=== PATIENT | female | born 1995 ===

== ENCOUNTER 2021-11-01 09:57 | Outpatient (CLI) | payer OTHER | END 2021-11-01 11:25 | disposition home or self-care (01) | LOC: PRENATAL 09:57 | PROVIDERS: ATTEND Obstetrics & Gynecology Maternal & Fetal Medicine | DX: O28.1 Abnormal biochemical finding on antenatal screening of mother (principal); O35.0XX0 Maternal care for (suspected) central nervous system malformation in fetus, not applicable or unspecified; O35.3XX0 Maternal care for (suspected) damage to fetus from viral disease in mother, not applicable or unspecified; Z3A.22 22 weeks gestation of pregnancy ==

== ENCOUNTER 2022-01-10 08:53 | Outpatient (CLI) | payer OTHER | END 2022-01-10 09:33 | disposition home or self-care (01) | LOC: PRENATAL 08:53 | PROVIDERS: ATTEND Obstetrics & Gynecology Maternal & Fetal Medicine | DX: O26.849 Uterine size-date discrepancy, unspecified trimester (principal); O35.0XX0 Maternal care for (suspected) central nervous system malformation in fetus, not applicable or unspecified; O28.1 Abnormal biochemical finding on antenatal screening of mother; O34.10 Maternal care for benign tumor of corpus uteri, unspecified trimester ==